=== PATIENT | female | born 1995 | race African-American/Black ===

== ENCOUNTER 2025-03-16 12:55 | Emergency (ER) | payer MEDICAID ==
[~2025-03-16] VITALS: Ht 157.5 cm; Wt 91.0 kg
[2025-03-16 12:57] VITALS: TEMP 36.9; O2SAT 99
[2025-03-16] MEDS: SODIUM CHLORIDE 0.9% 1,000 ML IV ONE (13:37)
[2025-03-16] MEDS: ONDANSETRON HCL 4MG/2ML INJ IV ONE (13:37)
[2025-03-16 14:01] LABS: HEMOGLOBIN 12.1 g/dL (12.0-16.0); MEAN CORPUSCULAR HEMOGLOBIN 33.9 pg (28.0-32.0); MEAN CORPUSCULAR HGB CONC 34.6 g/dL (31.0-37.0); MEAN CORPUSCULAR VOLUME 97.9 fL (81.0-99.0); PLATELET 378 x1000/uL (130-400); RED BLOOD CELL COUNT 3.58 mill/uL (4.2-5.4); RED CELL DISTRIBUTION WIDTH 13.6 % (11.6-14.6); WHITE BLOOD COUNT 11.6 x1000/uL (4.5-11.0)
[2025-03-16] MEDS: PYRIDOXINE HCL 50MG TABLET PO SCH (14:06)
[2025-03-16 14:24] LABS: CHLORIDE 104 mEq/L (98-107); POTASSIUM 3.8 mEq/L (3.5-5.1); SODIUM 137 mEq/L (136-145)
[2025-03-16 14:25] LABS: CALCIUM 9.2 mg/dL (8.7-10.4); CARBON DIOXIDE 22 mEq/L (21-32)
[2025-03-16 14:30] LABS: CREATININE 0.5 mg/dL (0.6-1.0); GLUCOSE 82 mg/dL (70-105); UREA NITROGEN BLOOD < 5 mg/dL (9-23)
[2025-03-16 14:53] LABS: CLARITY URINE CLOUDY (CLEAR); COLOR URINE YELLOW (YELLOW); GLUCOSE URINE NEGATIVE (NEGATIVE); KETONES URINE 4+ (NEGATIVE); LEUKOCYTE ESTERASE URINE TRACE (NEGATIVE); NITRITE URINE NEGATIVE (NEGATIVE); OCCULT BLOOD URINE NEGATIVE (NEGATIVE); PROTEIN URINE TRACE (NEGATIVE); SPECIFIC GRAVITY URINE 1.018 (1.005-1.030)
[2025-03-16 15:01] VITALS: BP 123/74; PULSE 68; RESP 16; O2SAT 99
[2025-03-16] MEDS ORDERED: PYRI25TA4 MT (15:02)
[2025-03-16] MEDS: CEFTRIAXONE 1GM/50ML 50 ML IV SCH (15:12)
[2025-03-16 15:18] LABS: SQUAMOUS EPITHELIAL CELL URINE 3+ /lpf (RARE/1+)
[2025-03-16 15:19] LABS: MUCUS URINE 1+ /lpf (< = 2+)
[2025-03-16 15:20] LABS: BACTERIA URINE 2+; WBC URINE 0-2 /hpf (0-2)
[2025-03-16 15:21] LABS: RBC URINE NONE SEEN /hpf (0-2)
== END 2025-03-16 15:44 | disposition home or self-care (01) ==
LOC: ER 12:55
DX: O21.0 Mild hyperemesis gravidarum (principal); O10.913 Unspecified pre-existing hypertension complicating pregnancy, third trimester; O23.43 Unspecified infection of urinary tract in pregnancy, third trimester; Z3A.30 30 weeks gestation of pregnancy; Z79.899 Other long term (current) drug therapy
CPT/HCPCS: 80048; 81003; 85027; 36415; 96361; 96365; 96375; 99284; J0696; J2405; J7030; Z7610 ×2

== ENCOUNTER 2025-04-09 12:16 | Emergency (ER) | payer MEDICAID ==
[~2025-04-09] VITALS: Ht 172.7 cm; Wt 68.0 kg
[~2025-04-09 12:16] MED LIST: PYRI25TA4 MT
[2025-04-09 12:18] VITALS: O2SAT 98
[2025-04-09] MEDS: LACTATED RINGERS 1,000 ML IV ONE (13:10)
[2025-04-09] MEDS: ONDANSETRON HCL 4MG/2ML INJ IV ONE (13:18)
[2025-04-09 13:25] LABS: BASOPHILS % 1.2 % (0.0-2.0); EOSINOPHILS % 0.8 % (0.0-5.0); HEMATOCRIT. 35.3 % (36.0-48.0); HEMOGLOBIN. 12.3 g/dL (12.0-16.0); LYMPHOCYTES % 21.3 % (20.0-50.0); MEAN CORPUSCULAR HEMOGLOBIN 33.7 pg (28.0-32.0); MEAN CORPUSCULAR HGB CONC 34.8 g/dL (31.0-37.0); MEAN PLATELET VOLUME 8.6 fl (7.4-10.4); MONOCYTES % 5.1 % (2.0-8.0); NEUTROPHILS % 71.6 % (40.0-76.0); PLATELET 369 x1000/uL (130-400); RED BLOOD CELL COUNT 3.64 mill/uL (4.2-5.4); RED CELL DISTRIBUTION WIDTH 13.4 % (11.6-14.6); WHITE BLOOD COUNT 8.9 x1000/uL (4.5-11.0)
[2025-04-09 13:52] LABS: CARBON DIOXIDE 23 mEq/L (21-32); CHLORIDE 104 mEq/L (98-107); POTASSIUM 2.9 mEq/L (3.5-5.1); SODIUM 139 mEq/L (136-145)
[2025-04-09 13:53] LABS: CALCIUM 8.9 mg/dL (8.7-10.4)
[2025-04-09 13:57] LABS: CREATININE 0.5 mg/dL (0.6-1.0); GLUCOSE 79 mg/dL (70-105)
[2025-04-09 13:58] LABS: UREA NITROGEN BLOOD < 5 mg/dL (9-23)
[2025-04-09 14:00] LABS: BETA HYDROXYBUTYRATE 0.8 mMol/L (0.0-0.3)
[2025-04-09] MEDS: POTASSIUM CHLORIDE 20MEQ TABLET SR PO ONE (14:12)
[2025-04-09] MEDS: MAGNESIUM 2 G PREMIX 50 ML IV ONE (14:13)
[2025-04-09 14:23] LABS: PROTHROMBIN TIME 10.3 sec (9.6-11.0)
[2025-04-09 15:03] VITALS: BP 128/82; PULSE 76; RESP 12; TEMP 36.6; O2SAT 100
[2025-04-09 15:40] LABS: CLARITY URINE CLEAR (CLEAR); COLOR URINE YELLOW (YELLOW); GLUCOSE URINE NEGATIVE (NEGATIVE); KETONES URINE 4+ (NEGATIVE); LEUKOCYTE ESTERASE URINE TRACE (NEGATIVE); NITRITE URINE NEGATIVE (NEGATIVE); OCCULT BLOOD URINE NEGATIVE (NEGATIVE); PH URINE 6.5 (4.5-8.0); PROTEIN URINE TRACE (NEGATIVE); SPECIFIC GRAVITY URINE 1.015 (1.005-1.030)
[2025-04-09 16:17] LABS: BACTERIA URINE 1+; RBC URINE 0-2 /hpf (0-2); SQUAMOUS EPITHELIAL CELL URINE 1+ /lpf (RARE/1+); WBC URINE 0-2 /hpf (0-2)
== END 2025-04-09 15:18 | disposition short-term general hospital (02) ==
LOC: ER 12:16 → CANBEDREQ 14:21 → ER 15:18
DX: O21.1 Hyperemesis gravidarum with metabolic disturbance (principal); O99.283 Endocrine, nutritional and metabolic diseases complicating pregnancy, third trimester; O26.893 Other specified pregnancy related conditions, third trimester; E83.42 Hypomagnesemia; R10.2 Pelvic and perineal pain; Z3A.34 34 weeks gestation of pregnancy
CPT/HCPCS: 80048; 81003; 82010; 84702; 83735; 85025; 85610; 86850; 86900; 86901; 36415; 76815; 96361; 96365; 96375; 99285; J3475; J2405; J7120; Z7610 ×3; A4606